=== PATIENT | female | born 1975 | race Caucasian/White ===

== ENCOUNTER 2021-03-31 14:19 | Emergency (ER) | payer MEDICAID ==
--- NOTE | 2021-03-31 14:47 | NUR ---
CALLED X . NO SHOW.
--- NOTE | 2021-03-31 14:59 | NUR ---
Note clover in ED - 03/31/21 at 1509 by [email or web address] CALLED PT FOR 3RD TIME, PT NOT ANSWERING LWBS. MADE AWARE.
--- NOTE | 2021-03-31 14:59 | NUR ---
CALLED PT FOR 2ND TIME, PT NOT ANSWERING [facility]BS. MADE AWARE.
--- NOTE | 2021-03-31 15:08 | NUR ---
CALLED PT FOR 3RD TIME, PT NOT ANSWERING LWBS. MADE AWARE.
== END 2021-03-31 14:45 | disposition left against medical advice (07) ==
LOC: MED 14:19
DX: Z53.21 Procedure and treatment not carried out due to patient leaving prior to being seen by health care provider (principal)